=== PATIENT | male | born 1995 | race Caucasian/White ===

== ENCOUNTER 2021-05-18 15:30 | Emergency (ER) | payer OTHER ==
[~2021-05-18] VITALS: Ht 180.3 cm; Wt 68.9 kg
[2021-05-18] MEDS ORDERED: NS 1,000 ML IV ONE (16:50)
[2021-05-18 17:38] LABS: BASO % 0.4 % (0.0-1.0); EOS % 0.1 % (0.0-3.0); HEMOGLOBIN 14.7 g/dl (13.5-17.5); LYMPH # 1.6 10^3/uL (1.5-5.0); LYMPH % 19.8 % (24.0-44.0); MEAN CORPUSCULAR HEMOGLOBIN 29.5 pg (27.0-33.0); MEAN CORPUSCULAR HGB CONC 33.4 g/dl (32.0-36.5); MEAN CORPUSCULAR VOLUME 88.2 fl (80.0-96.0); MONO # 0.6 10^3/uL (0.0-0.8); NEUTROPHILS # 5.8 10^3/uL (1.5-8.5); NEUTROPHILS % 71.3 % (36.0-66.0); PLATELET COUNT, AUTOMATED 285 10^3/uL (150-450); RED BLOOD COUNT 4.99 10^6/uL (4.30-6.10); WHITE BLOOD COUNT 8.1 10^3/uL (4.0-10.0)
[2021-05-18 17:51] LABS: BLOOD UREA NITROGEN 11 MG/DL (7-18); CALCIUM LEVEL 8.8 MG/DL (8.5-10.1); CARBON DIOXIDE LEVEL 25 MEQ/L (21-32); CHLORIDE LEVEL 108 MEQ/L (98-107); CREATININE FOR GFR 0.88 MG/DL (0.70-1.30); GLOMERULAR FILTRATION RATE > 60.0 (>60); GLUCOSE, FASTING 90 MG/DL (70-100); POTASSIUM SERUM 3.5 MEQ/L (3.5-5.1); SODIUM LEVEL 141 MEQ/L (136-145)
[2021-05-18 17:57] LABS: ALBUMIN 4.3 GM/DL (3.2-5.2); ALT/SGPT 71 U/L (12-78); BILIRUBIN,DIRECT 0.2 MG/DL (0.0-0.2); BILIRUBIN,TOTAL 0.7 MG/DL (0.2-1.0); CK-MB VALUE MASS < 1.0 NG/ML (<3.6); CPK CREATINE PHOSPHOKINASE 112 U/L (39-308); MB/CK RELATIVE INDEX 0.89 (< OR =4); TOTAL PROTEIN 7.5 GM/DL (6.4-8.2); TROPONIN I < 0.02 NG/ML (< 0.10)
[2021-05-18 18:03] LABS: RSV AMPLIFICATION NEGATIVE (NEGATIVE)
[2021-05-18] MEDS ORDERED: SCOP1PAT2 TOP (18:18)
[2021-05-18] MEDS ORDERED: ONDA4TAB6 PO (18:18)
[2021-05-18 19:06] VITALS: BP 133/65
--- NOTE | 2021-05-19 08:38 | ECGEPIP ---
[facility] - ED Test Date: 2021-05-18 Pat Name: LUCIANO DOVER Department: Room: - Gender: Male Hand Model: MELINDA : 1995 Requested By: KIM VALERIO Order Number: [id number] Reading MD: Santosh Godoman Measurements Intervals [place] Rate: 59 P: 60 TX: 146 QRS: 14 QRSD: 88 T: 34 QT: 422 QTc: 417 Interpretive Statements Sinus bradycardia INCOMPLETE RIGHT BUNDLE BRANCH BLOCK NO PRIORS FOR COMPARISON Electronically Signed on 05-19-2021 8:37:40 EDT by Santosh Goodman
== END 2021-05-18 19:09 | disposition home or self-care (01) ==
LOC: M ED 15:30
DX: R11.2 Nausea with vomiting, unspecified (principal); T75.3XXA Motion sickness, initial encounter; R00.1 Bradycardia, unspecified; I45.19 Other right bundle-branch block